=== PATIENT | female | born 1950 ===

== ENCOUNTER → 2018-12-19 22:23 | Outpatient (ROUT) | payer MEDICARE, OTHER, SELFPAY ==
[2018-12-19 23:44] LABS: Add Manual Diff / Slide Review NO; Basophils Absolute Auto 100 /uL (0-100); Basophils Percent Auto 0.7 % (0-2); Eosinophils Absolute Auto 200 /uL (0-450); Eosinophils Percent Auto 2.1 % (2-4); Hematocrit 45.9 % (36-46); Hemoglobin 15.5 g/dL (12.0-16.0); Lymphocytes Absolute Auto 2600 /uL (1100-4500); Lymphocytes Percent Auto 32.1 % (25-40); Mean Corpuscular HGB Conc 33.7 % (30-36); Mean Corpuscular Hemoglobin 32.1 PG (26-34); Mean Corpuscular Volume 95.2 fL (80-100); Monocytes Absolute Auto 600 /uL (0-900); Monocytes Percent Auto 8.1 % (3-14); Neutrophils Absolute Auto 4600 /uL (1500-7000); Platelet Count 216 X10^3/uL (150-400); Red Blood Cell Count 4.82 X10^6/uL (4.0-5.2); Red Cell Distribution Width 12.9 % (11.6-14.8)
[2018-12-20 00:07] LABS: Erythrocyte Sedimentation Rate 4 MM/HR (0-20)
== END ==
PROVIDERS: Visit Provider Family Medicine
DX: R05 Cough (principal); R53.83 Other fatigue
CPT/HCPCS: 36415; 85025; 85651; 86738